=== PATIENT | male | born 1930 | race Caucasian/White ===

== ENCOUNTER → 2017-04-05 | Outpatient (CLI) | payer OTHER ==
[2017-04-05 09:50] LABS: BASO % 0.1 %; BASO ABS # 0.01 K/uL (0-0.2); EOS % 0.1 %; EOS ABS # 0.02 K/uL (0-0.5); HEMATOCRIT 43.3 % (42-52); HEMOGLOBIN 14.5 g/dL (14.0-18.0); IG# 0.06 K/uL (0.00-0.02); LYMPH % 10.2 %; LYMPH ABS # 1.62 K/uL (1.2-3.4); MEAN CELL VOLUME 94.1 fL (80-100); MEAN CORPUSCULAR HEMOGLOBIN 31.5 pg (25-34); MEAN CORPUSCULAR HGB CONC 33.5 g/dl (32-36); MEAN PLATELET VOLUME 11.3 fL (7.4-10.4); MONO % 6.4 %; MONO ABS # 1.02 K/uL (0.11-0.59); NEUT % 82.8 %; PLATELET COUNT 129 K/uL (130-400); RED CELL DISTRIBUTION WIDTH CV 14.2 % (11.5-14.5); RED CELL DISTRIBUTION WIDTH SD 48.4 fL (36.4-46.3); WHITE BLOOD COUNT 15.83 K/uL (4.8-10.8)
[2017-04-05 09:59] LABS: ALBUMIN 3.2 gm/dl (3.4-5.0); ALT/SGPT 21 U/L (12-78); BLOOD UREA NITROGEN 35 mg/dl (7-18); CALCIUM 10.8 mg/dl (8.5-10.1); CARBON DIOXIDE 26 mmol/L (21-32); CREATININE 1.08 mg/dl (0.60-1.40); GLUCOSE 108 mg/dl (70-99); SODIUM 137 mmol/L (136-145)
[2017-04-05 10:10] LABS: ALKALINE PHOSPHATASE 59 U/L (45-117); AST/SGOT 14 U/L (15-37); TOTAL PROTEIN 6.6 gm/dl (6.4-8.2)
== END ==
LOC: C.LABUPHEI 09:28
PROVIDERS: ATTEND Nurse Practitioner Family
DX: I10 Essential (primary) hypertension (principal)

== ENCOUNTER → 2017-04-14 | Outpatient (CLI) | payer OTHER ==
[2017-04-14 09:58] LABS: BASO % 0.5 %; BASO ABS # 0.03 K/uL (0-0.2); EOS % 5.1 %; EOS ABS # 0.32 K/uL (0-0.5); HEMATOCRIT 40.7 % (42-52); HEMOGLOBIN 13.5 g/dL (14.0-18.0); IG# 0.01 K/uL (0.00-0.02); LYMPH ABS # 1.26 K/uL (1.2-3.4); MEAN CELL VOLUME 94.4 fL (80-100); MEAN CORPUSCULAR HEMOGLOBIN 31.3 pg (25-34); MEAN CORPUSCULAR HGB CONC 33.2 g/dl (32-36); MEAN PLATELET VOLUME 10.6 fL (7.4-10.4); MONO % 12.4 %; MONO ABS # 0.78 K/uL (0.11-0.59); NEUT % 61.8 %; NEUT ABS # 3.89 K/uL (1.4-6.5); PLATELET COUNT 102 K/uL (130-400); RED CELL DISTRIBUTION WIDTH CV 13.7 % (11.5-14.5); RED CELL DISTRIBUTION WIDTH SD 47.7 fL (36.4-46.3); WHITE BLOOD COUNT 6.29 K/uL (4.8-10.8)
[2017-04-14 10:10] LABS: BLOOD UREA NITROGEN 26 mg/dl (7-18); CARBON DIOXIDE 26 mmol/L (21-32); CREATININE 1.06 mg/dl (0.60-1.40); GLUCOSE 99 mg/dl (70-99); POTASSIUM 4.4 mmol/L (3.5-5.1); SODIUM 139 mmol/L (136-145)
== END ==
LOC: C.LABUPHEI 08:33
PROVIDERS: ATTEND Nurse Practitioner Family
DX: I10 Essential (primary) hypertension (principal); S06.5X9A Traumatic subdural hemorrhage with loss of consciousness of unspecified duration, initial encounter; X58.XXXA Exposure to other specified factors, initial encounter

== ENCOUNTER → 2017-04-28 | Outpatient (CLI) | payer OTHER ==
[2017-04-28 08:36] LABS: BASO % 0.1 %; BASO ABS # 0.01 K/uL (0-0.2); HEMATOCRIT 37.9 % (42-52); HEMOGLOBIN 12.8 g/dL (14.0-18.0); IG# 0.04 K/uL (0.00-0.02); LYMPH % 6.5 %; LYMPH ABS # 0.87 K/uL (1.2-3.4); MEAN CELL VOLUME 92.2 fL (80-100); MEAN CORPUSCULAR HEMOGLOBIN 31.1 pg (25-34); MEAN CORPUSCULAR HGB CONC 33.8 g/dl (32-36); MEAN PLATELET VOLUME 10.4 fL (7.4-10.4); MONO % 8.7 %; MONO ABS # 1.16 K/uL (0.11-0.59); NEUT % 84.4 %; PLATELET COUNT 178 K/uL (130-400); RED CELL DISTRIBUTION WIDTH SD 43.6 fL (36.4-46.3); WHITE BLOOD COUNT 13.38 K/uL (4.8-10.8)
[2017-04-28 08:41] LABS: BLOOD UREA NITROGEN 42 mg/dl (7-18); CALCIUM 11.2 mg/dl (8.5-10.1); CARBON DIOXIDE 24 mmol/L (21-32); CREATININE 1.73 mg/dl (0.60-1.40); GLUCOSE 117 mg/dl (70-99); POTASSIUM 3.8 mmol/L (3.5-5.1); SODIUM 137 mmol/L (136-145)
== END ==
LOC: C.LABUPHEI 08:13
PROVIDERS: ATTEND Nurse Practitioner Family
DX: I10 Essential (primary) hypertension (principal)

== ENCOUNTER → 2017-04-29 | Outpatient (CLI) | payer OTHER ==
[2017-04-29 08:27] LABS: BASO % 0.2 %; BASO ABS # 0.02 K/uL (0-0.2); EOS % 0.6 %; EOS ABS # 0.05 K/uL (0-0.5); HEMATOCRIT 37.3 % (42-52); HEMOGLOBIN 12.3 g/dL (14.0-18.0); IG# 0.02 K/uL (0.00-0.02); LYMPH % 11.8 %; LYMPH ABS # 1.02 K/uL (1.2-3.4); MEAN CELL VOLUME 91.9 fL (80-100); MEAN CORPUSCULAR HEMOGLOBIN 30.3 pg (25-34); MEAN PLATELET VOLUME 10.7 fL (7.4-10.4); MONO % 10.9 %; MONO ABS # 0.94 K/uL (0.11-0.59); NEUT % 76.3 %; NEUT ABS # 6.56 K/uL (1.4-6.5); PLATELET COUNT 186 K/uL (130-400); RED CELL DISTRIBUTION WIDTH CV 13.1 % (11.5-14.5); RED CELL DISTRIBUTION WIDTH SD 44.3 fL (36.4-46.3); WHITE BLOOD COUNT 8.61 K/uL (4.8-10.8)
[2017-04-29 08:39] LABS: BLOOD UREA NITROGEN 46 mg/dl (7-18); CARBON DIOXIDE 27 mmol/L (21-32); CREATININE 1.63 mg/dl (0.60-1.40); GLUCOSE 120 mg/dl (70-99); POTASSIUM 3.6 mmol/L (3.5-5.1); SODIUM 139 mmol/L (136-145)
== END | disposition home or self-care (01) ==
LOC: C.LABUPHEI 07:47
PROVIDERS: ATTEND Nurse Practitioner Family
DX: J18.9 Pneumonia, unspecified organism (principal)

== ENCOUNTER → 2017-05-02 | Outpatient (CLI) | payer OTHER ==
[2017-05-02 08:54] LABS: BLOOD UREA NITROGEN 34 mg/dl (7-18); CALCIUM 10.6 mg/dl (8.5-10.1); CARBON DIOXIDE 27 mmol/L (21-32); CREATININE 1.31 mg/dl (0.60-1.40); GLUCOSE 92 mg/dl (70-99); POTASSIUM 4.3 mmol/L (3.5-5.1); SODIUM 142 mmol/L (136-145)
== END | disposition home or self-care (01) ==
LOC: C.LABUPHEI 08:25
PROVIDERS: ATTEND Nurse Practitioner Family
DX: N18.9 Chronic kidney disease, unspecified (principal)

== ENCOUNTER → 2017-05-05 | Outpatient (CLI) | payer OTHER ==
[2017-05-05 10:04] LABS: BLOOD UREA NITROGEN 35 mg/dl (7-18); CALCIUM 10.8 mg/dl (8.5-10.1); CARBON DIOXIDE 25 mmol/L (21-32); CREATININE 1.09 mg/dl (0.60-1.40); GLUCOSE 103 mg/dl (70-99); POTASSIUM 3.9 mmol/L (3.5-5.1); SODIUM 141 mmol/L (136-145)
== END ==
LOC: C.LABUPHEI 09:15
PROVIDERS: ATTEND Nurse Practitioner Family
DX: N18.9 Chronic kidney disease, unspecified (principal)

== ENCOUNTER → 2017-05-13 | Outpatient (CLI) | payer OTHER ==
[2017-05-13 09:20] LABS: BLOOD UREA NITROGEN 37 mg/dl (7-18); CALCIUM 10.5 mg/dl (8.5-10.1); CARBON DIOXIDE 26 mmol/L (21-32); CREATININE 1.05 mg/dl (0.60-1.40); GLUCOSE 99 mg/dl (70-99); SODIUM 142 mmol/L (136-145)
== END ==
LOC: C.LABUPHEI 07:50
PROVIDERS: ATTEND Nurse Practitioner Family
DX: N18.9 Chronic kidney disease, unspecified (principal)

== ENCOUNTER → 2017-05-25 | Outpatient (CLI) | payer OTHER ==
[2017-05-25 08:16] LABS: BASO % 0.3 %; BASO ABS # 0.02 K/uL (0-0.2); EOS % 5.6 %; EOS ABS # 0.42 K/uL (0-0.5); HEMATOCRIT 37.7 % (42-52); HEMOGLOBIN 12.7 g/dL (14.0-18.0); IG# 0.01 K/uL (0.00-0.02); LYMPH % 23.1 %; LYMPH ABS # 1.72 K/uL (1.2-3.4); MEAN CELL VOLUME 91.5 fL (80-100); MEAN CORPUSCULAR HEMOGLOBIN 30.8 pg (25-34); MEAN CORPUSCULAR HGB CONC 33.7 g/dl (32-36); MEAN PLATELET VOLUME 11.4 fL (7.4-10.4); MONO ABS # 0.82 K/uL (0.11-0.59); NEUT % 59.9 %; NEUT ABS # 4.47 K/uL (1.4-6.5); PLATELET COUNT 120 K/uL (130-400); RED CELL DISTRIBUTION WIDTH CV 13.7 % (11.5-14.5); RED CELL DISTRIBUTION WIDTH SD 45.7 fL (36.4-46.3); WHITE BLOOD COUNT 7.46 K/uL (4.8-10.8)
[2017-05-25 08:25] LABS: BLOOD UREA NITROGEN 19 mg/dl (7-18); CALCIUM 10.5 mg/dl (8.5-10.1); CARBON DIOXIDE 25 mmol/L (21-32); CREATININE 1.03 mg/dl (0.60-1.40); GLUCOSE 97 mg/dl (70-99); POTASSIUM 4.3 mmol/L (3.5-5.1); SODIUM 140 mmol/L (136-145)
--- NOTE | 2017-06-02 07:47 | CODING QUERY NO DIAGNOSIS ---
TREATMENT RENDERED WITHOUT A DIAGNOSIS Sue RN OR LPN, To promote full compliance with coding requirements relating to patient care, physician participation is requested in all cases of communications strategist uncertainty. Please assist us with providing a diagnosis/symptom for the test(s) below: A diagnosis/symptom was not documented on your Order. A valid diagnosis/symptom is required to bill all insurances. Please remember that we are unable to code a diagnosis of rule out, probable, possible, questionable, or suspected. Tests that require a diagnosis: * TSH DIAGNOSIS: DATE OF SERVICE: 05/25/17 Provider Signature: Date: Thank you Jonnathan Marx [facility] Information Management Once completed, please kindly fax back to [phone] For questions please call [phone]
== END | disposition home or self-care (01) ==
LOC: C.LABUPHEI 07:56
PROVIDERS: ATTEND Nurse Practitioner Family
DX: N18.9 Chronic kidney disease, unspecified (principal); I62.01 Nontraumatic acute subdural hemorrhage; N36.0 Urethral fistula; R41.82 Altered mental status, unspecified; Z51.81 Encounter for therapeutic drug level monitoring; Z79.899 Other long term (current) drug therapy

== ENCOUNTER → 2017-05-26 | Outpatient (CLI) | payer OTHER | END | disposition home or self-care (01) | LOC: C.LABUPHEI 09:38 | PROVIDERS: ATTEND Nurse Practitioner Family | DX: R41.82 Altered mental status, unspecified (principal) ==

== ENCOUNTER → 2017-06-09 | Outpatient (CLI) | payer OTHER ==
--- NOTE | 2017-06-09 15:09 | EEG Procedure Note ---
EEG Procedure Note Date of Service June 09, 2017. Start / End Times Start Time: 1:42 PM End Time: 2:02 PM Referring Physician Nicolas Velez MD History This is a 86-year-old male with a history of vascular dementia, ataxia, and bilateral subdural hematomas. EEG for further evaluation of epileptiform discharges and medication management. Description This is a 21 electrode EEG with a single channel dedicated to limited EKG. The electrodes were placed in accordance with the International 10-20 system. At the start of the recording the patient was in an awake state. Background was well organized and composed of symmetric mixed alpha and beta frequencies. There was a symmetric well-formed moderate amplitude 8-9Hz posterior dominant rhythm that was reactive to eye opening and closure. Hyperventilation and Intermittent photic stimulation were not done due to patient not following commands. Mild drowsiness may have been indicated by mild slowing of the background rhythm. There was no sleep transients. Interpretation This is a normal awake and minimally drowsy routine EEG. There was no focal slowing, electrographic seizures or epileptiform discharges. Clinical Correlation A normal EEG does not rule out epilepsy if there is a strong clinical suspicion.
== END | disposition home or self-care (01) ==
LOC: C.NEUR 13:28
PROVIDERS: ATTEND Psychiatry & Neurology Neurology
DX: R27.0 Ataxia, unspecified (principal); F01.50 Vascular dementia, unspecified severity, without behavioral disturbance, psychotic disturbance, mood disturbance, and anxiety; S06.5X9A Traumatic subdural hemorrhage with loss of consciousness of unspecified duration, initial encounter; X58.XXXA Exposure to other specified factors, initial encounter

== ENCOUNTER → 2017-06-13 | Outpatient (CLI) | payer OTHER | LOC: C.LABUPHEI 09:04 | PROVIDERS: ATTEND Nurse Practitioner Family | DX: D64.9 Anemia, unspecified (principal) ==

== ENCOUNTER 2018-10-25 14:20 | Inpatient (IN) ==
[2018-10-25] MEDS ORDERED: SODIUM CHLORIDE 0.9% 1000ML 1,000 ML IV SCH (14:30)
--- NOTE | 2018-10-25 14:51 | XRay Report ---
XR chest 1V portable CLINICAL HISTORY: weakness dyspnea COMPARISON STUDY: Prominent pulmonary vasculature. This is slightly asymmetric and somewhat more pro minent on the left as compared to the right. Moderate cardiomegaly. IMPRESSION: Developing congestive heart failure The above report was generated using voice recognition software. It may contain grammatical, syntax or spelling errors. Electronically signed by: Nicolas Padgett M.D. 10/25/2018 2:50 PM
[2018-10-25 14:59] LABS: Basophils # (auto) 0.01 K/uL (0-0.2); Basophils % (auto) 0.1 %; Eosinophils # (auto) 0.26 K/uL (0-0.5); Eosinophils % (auto) 1.9 %; Hemoglobin 13.4 g/dL (14.0-18.0); Immature Granulocytes # (auto) 0.04 K/uL (0.00-0.02); Immature Granulocytes % (auto) 0.3 %; Lymphocytes # (auto) 1.03 K/uL (1.2-3.4); Lymphocytes % (auto) 7.6 %; Mean Corpuscular Hemoglobin 31.3 pg (25-34); Mean Corpuscular Hgb Conc 34.4 g/dL (32-36); Mean Corpuscular Volume 91.1 fL (80-100); Mean Platelet Volume 10.9 fL (7.4-10.4); Monocytes # (auto) 1.41 K/uL (0.11-0.59); Monocytes % (auto) 10.4 %; Neutrophils # (auto) 10.85 K/uL (1.4-6.5); Neutrophils % (auto) 79.7 %; Platelet Count 110 K/uL (130-400); RDW Standard Deviation 43.3 fL (36.4-46.3); Red Blood Count 4.28 M/uL (4.7-6.1)
[2018-10-25 15:20] LABS: Appearance Urine Clear (Clear); Bacteria Urine Automated Negative (Negative); Bilirubin Urine Negative (Negative); Blood Urine Negative (Negative); Cast Urine Automated 0 /lpf (0-5); Color Urine Yellow; Glucose Urine UA Negative (Negative); Ketones Urine Negative (Negative); Leukocyte Esterase Urine 1+ (Negative); Nitrite Urine Negative (Negative); Protein Urine Negative (Negative); RBC Urine Automated 0-4 /hpf (0-4); Specific Gravity Urine 1.021 (1.000-1.030); Urobilinogen Urine Negative (Negative)
[2018-10-25 15:33] LABS: Albumin Globulin Ratio 0.8 (0.9-2); Albumin Level 2.9 gm/dl (3.4-5.0); BUN Creatinine Ratio 19.9 (10-20); Bilirubin,Total 0.8 mg/dl (0.2-1); Calcium 8.9 mg/dl (8.5-10.1); Creatinine Clr Calc Pharmacy 12.5 ml/min; Est GFR (African American) 11.9; Est GFR (Non-African American) 10.2; Globulin 3.8 gm/dl (2.5-4.0); Magnesium 2.3 mg/dl (1.8-2.4); Potassium 3.1 mmol/L (3.5-5.1); Thyroid Stimulating Hormone 4.57 uIu/ml (0.300-4.500); Total Protein 6.7 gm/dl (6.4-8.2); Troponin I 0.082 ng/ml (0-0.045)
[2018-10-25 15:46] LABS: T4 Free Thyroxine 1.05 ng/dl (0.8-1.6)
--- NOTE | 2018-10-25 17:22 | History & Physical Report ---
Date of Service October 25, 2018 Assessment & Plan (1) KELSEY (acute kidney injury): (2) CKD (chronic kidney disease), stage III: Pt is 88 y/o M with PMH h/o subdural hematoma, HTN, dyslipidemia, pulmonary hypertension, BPH, h/o urinary calculi, CKD III, chronic anemia, GERD, depression, dementia, hypothyroidism, AAA presented from outpatient radiology department today for abnormal renal functions. In ER pt afebrile, P: 75, R: 16, BP: 129/71, 93-95% on RA. WBC: 13.6, H/H: (Hgb: 12.9 in 01/2018), Plt: 110, BUN: 95, Cr: 4.7, GFR: 10 (Cr: 1.1 in 01/2018) UA: 1+ leuk esterase, 5-10 WBC, 10-20 epithelial Probable secondary to obstruction from enlarged prostate -In ER Bonilla placed with 1500ml urine output -In ER given 1L NSS -Urine culture -Rocephin x 1 dose now, pending urine culture -Gentle IVF -Avoid nephrotoxic agents when possible -Monitor renal functions -Urology consult -If no improvement consult nephrology (3) Hydronephrosis: (4) Urinary retention: Pt unable to give history, [facility] staff report no noted fever/chills and state pt with chronic intermittent urinary frequency, urinary incontinence Pt follows with Dr Grayson CT ABD/PELVIS: 1. Bilateral hydroureteronephrosis. 2. Several nonobstructing renal cortical calcifications bilaterally with several simple bilateral renal peripelvic cysts. 3. Bladder distention potentially related to a component of bladder outlet obstruction. 4. This potentially is the etiology for the bilateral hydroureteronephrosis. 5 prostatic enlargement. -In ER Bonilla placed with 1500ml urine output -Continue flomax -Urology consult (5) Elevated troponin: Troponin: 0.08. Nonspecific ST changes. No reported CP Probable secondary from CKD -Trend troponin -Repeat EKG in am -If develops CP or up trending troponin consider echo (6) Hypokalemia: K: 3.1 -replace and monitor -hold home supplement and repeat electrolytes and renal functions in am (7) QT prolongation: Prolonged QTc on EKG -Repeat EKG in am -Hold Haldol (8) Chronic anemia: H/H: 13/39. Baseline Hgb: 12.9 -Monitor H&H (9) HTN (hypertension): BP on lower side -Hold lisinopril secondary to KELSEY -Monitor BP (10) Dyslipidemia: -Continue statin (11) Dementia: -Hold Haldol secondary to prolonged QTC -Continue trazodone with close monitoring of QTc -Continue Aricept -Monitor for delirium (12) Hypothyroidism: TSH: 4.5 -Not on home meds DVT Prophylaxis -Heparin SQ DNR/DNI as per POLST and discussion with pt's guardian - [facility] [place] Follows with Dr Yang at [facility] for routine care Pt was seen and care coordinated with Dr Bruce. See addendum History of Present Illness Chief Complaint: Abnormal labs Primary Care Provider: [facility] -Dr Yang Pt is 88 y/o M with PMH h/o subdural hematoma, HTN, dyslipidemia, pulmonary hypertension, BPH, h/o urinary calculi, CKD III, chronic anemia, GERD, depression, dementia, hypothyroidism, AAA presented to ER from outpatient radiology department today for abnormal renal functions. History obtained from [facility] staff, as pt unable to give history secondary to dementia. Staff report patient alert to person only at baseline and report today patient seems at baseline mental status. It is reported patient with intermittent trouble urinating, intermittent urinary incontinence, intermittent urinary frequency. He is followed by Dr. Grayson, urology. Staff reports the patient was scheduled to have cystoscopy next month and he was to have CT abdomen pelvis today prior to his scheduled cystoscopy. Staff denies any noted fever or chills with patient. Staff reports did UA in clinic on 10/19/2018 which looked benign. Staff report have not noticed any hematuria and pt urinates on his own, however unsure if pt empties bladder completely as they do not bladder scan pt there. Currently pt is alert to self only and denies any CP, SOB, BARDALES, abdominal pain, back pain. Patient guardian - Yvonne Juarez with [facility] [facility] [place]. . She was not available as after office hours, however I was able to speak to on- certified personal finance counselor at [facility] [employer] on [address]. Report that pt is DNR/DNI and state that ok if pt receives IVF or antibiotics as needed as long as pt has treatable and reversible condition. Allergies Allergy/AdvReac Type Severity Reaction Status Date / Time celecoxib [From Celebrex] Allergy Unknown Unknown Verified 10/25/18 15:19 latex Allergy Unknown Unknown Verified 10/25/18 15:19 rofecoxib Allergy Unknown Unknown Verified 10/25/18 15:19 Home Medications Home Medications Medication Instructions Recorded Confirmed Type atorvastatin 20 mg tablet 20 mg PO QPM 10/04/18 10/25/18 History donepezil 5 mg tablet 5 mg PO HS 10/04/18 10/25/18 History fluticasone furoate 27.5 See Rx Instructions .ROUTE 10/04/18 10/25/18 History mcg/actuation nasal .COMPLEX PRN spray,suspension haloperidol 0.5 mg tablet 0.5 mg PO HS 10/04/18 10/25/18 History lisinopril 5 mg tablet 5 mg PO DAILY 10/04/18 10/25/18 History magnesium hydroxide 400 mg/5 mL 30 ml PO DIRECTED PRN 10/04/18 10/25/18 History oral suspension acetaminophen 650 mg PO Q6H PRN MDD 3 GM APAP/10/25/18 10/25/18 History HOURS acetaminophen 650 mg RI Q6H PRN 10/25/18 10/25/18 History bisacodyl [Dulcolax (bisacodyl)] 10 mg RI DIRECTED PRN 10/25/18 10/25/18 History cetirizine [Zyrtec] 10 mg PO DAILY 10/25/18 10/25/18 History nut.tx,spec.frm,l-fr,iron-fos 1 ea PO QID 10/25/18 10/25/18 History [TwoCal HN] sod phos di, mono-K phos mono 1 tab PO TID 10/25/18 10/25/18 History [S-Fngu-Jxirsss] sodium phosphates [Fleet Enema] 118 ml RI DIRECTED PRN 10/25/18 10/25/18 History tamsulosin [Flomax] 0.4 mg PO QPM 10/25/18 10/25/18 History trazodone 25 mg PO DAILY 10/25/18 10/25/18 History Past Med/Surg History Medical History Depression (Chronic) AAA (abdominal aortic aneurysm) (Chronic) Dementia (Chronic) Hypothyroidism (Chronic) BPH (benign prostatic hyperplasia) (Chronic) Chronic anemia (Chronic) History of subdural hematoma (Chronic) GERD (gastroesophageal reflux disease) (Chronic) CKD (chronic kidney disease), stage III (Chronic) HTN (hypertension) (Chronic) Dyslipidemia (Chronic) Hyperlipidemia Hypertension Family History Mother Hypertension Social History Preferred Language: Arabic Watchguard Required: No Current Living Situation: Custodial Current Living Situation Comment: [facility] Feels Safe at Home: Yes Smoking Status: Unknown if ever smoked Hx Alcohol Use: No Hx Substance Use: No Review of Systems Review of Systems: Unobtainable due to cognitive status Physical Exam Physical Exam: General: elderly male in no acute distress, moderately developed, moderately nourished Head: normocephalic, atraumatic Eyes: PERRL, EOM's intact, conjunctiva non-injected, anicteric ENT: normal inspection external ears, nose, mucous membranes moist Neck: supple, trachea midline Lungs: clear, diminished, no respiratory distress, no wheezing/rhonchi/rales CV: RRR, no murmur, no pretibial edema Abd: normal BS, soft, non-tender, no apparent CVA tenderness to percussion Ext: no cyanosis, no calf tenderness Neuro: Alert, oriented to person only, cooperative Skin: warm, dry Results & Data Vital Signs (Past 12 Hours) Vital Signs Temp Pulse Resp BP Pulse Ox 10/25/18 17:00 68 12 100/47 L 98 10/25/18 16:31 69 11 L 99 10/25/18 16:30 68 13 121/50 L 97 10/25/18 16:00 70 12 95/51 L 96 10/25/18 15:30 75 14 94/50 L 97 10/25/18 15:09 84 16 95 10/25/18 15:08 79 24 131/78 95 10/25/18 15:00 85 22 95 10/25/18 14:45 93 10/25/18 14:37 86 17 94 10/25/18 14:31 86 17 131/66 95 10/25/18 14:21 37.3 C 75 16 129/71 93 Laboratory Results Short CBC 10/25/18 Range/Units 14:50 WBC 13.60 H (4.8-10.8) K/uL Hgb 13.4 L (14.0-18.0) g/dL Hct 39.0 L (42-52) % Plt Count 110 L (130-400) K/uL BMP 10/25/18 14:50 Sodium 141 Potassium 3.1 L Chloride 104 Carbon Dioxide 25 BUN 95 H Creatinine 4.78 H* Glucose 116 H Calcium 8.9 Cardiac Enzymes 10/25/18 Range/Units 14:50 Troponin I 0.082 H* (0-0.045) ng/ml Liver Function 10/25/18 Range/Units 14:50 Total Bilirubin 0.8 (0.2-1) mg/dl AST 24 (15-37) U/L ALT 31 (12-78) U/L Alkaline Phosphatase 70 (45-117) U/L Albumin 2.9 L (3.4-5.0) gm/dl Urine 10/25/18 Range/Units 15:00 Urine Color Yellow Urine Appearance Clear (Clear) Urine pH 5.0 (4.5-7.5) Ur Specific [place] 1.021 (1.000-1.030) Urine Protein Negative (Negative) Urine Glucose (UA) Negative (Negative) Diagnostic Findings CXR: IMPRESSION: Developing congestive heart failure CT ABD/PELVIS: IMPRESSION: 1. Bilateral hydroureteronephrosis. 2. Several nonobstructing renal cortical calcifications bilaterally with several simple bilateral renal peripelvic cysts. 3. Bladder distention potentially related to a component of bladder outlet obstruction. 4. This potentially is the etiology for the bilateral hydroureteronephrosis. 5 prostatic enlargement. 6. 5 cm infrarenal abdominal aortic aneurysm. ECG Rate (beats per minute): 82 Rhythm: sinus rhythm Findings: + nonspecific-ST abn Code Status & VTE Plan VTE Prophylaxis Plan VTE Prophylaxis will be ordered: Yes Supervising Physician Co-Signing Physician Notes Patient is an 88-year-old male with history of subdural hematoma, advanced dementia and other medical problems was evaluated for abnormal labs, urinary retention, KELSEY, obstructive uropathy. History is limited secondary to patient's dementia. Please review HPI for complete details. Patient denies any chest pain, shortness of breath, abdominal pain, nausea, vomiting. Patient was noted to have urinary retention and Bonilla catheter was placed while in ED. On exam patient is oriented to person only, no apparent distress, normocephalic atraumatic, lungs are clear to auscultation, decreased breath sounds, S1-S2, no murmur, abdomen soft nontender, grossly no focal neurological deficits, no pedal edema. Patient is admitted for management of obstructive uropathy, bilateral hydronephrosis, KELSEY, hypokalemia, troponin elevation likely secondary to acute renal failure, QTC prolongation. Abnormal UA--less likely UTI. Obstructive uropathy likely secondary to enlarged prostate. Nonobstructive renal calculi also noted on imaging. Continue Bonilla catheter, gentle IV fluids, avoid nephrotoxic agents. Urology consulted. Continue Flomax. Replace electrolytes as needed. Trend troponins. Monitor EKG for QTC prolongation. Discussed with patient's guardian prior to any aggressive management. Also noted infrarenal abdominal aortic aneurysm--monitor for now. Repeat renal ultrasound in a.m. to monitor for obstruction. Consider nephrology consult if renal function not improved with conservative management. Noted chronic thrombocytopenia. No signs of any acute bleeding. Monitor CBC. I personally reviewed the record. Patient is interviewed and examined at bedside. Patient's care is coordinated with Funmilayo Peralta PA-C. Please refer to the documentation above for details of patient's presentation and for discussion of other issues.
[2018-10-25] MEDS ORDERED: ACETAMINOPHEN 325 MG TAB PO PRN (17:45)
[2018-10-25] MEDS ORDERED: POTASSIUM CHLORIDE 20 MEQ TABCR PO STA (17:45)
[2018-10-25] MEDS ORDERED: FLUTICASONE PROPIONATE NA SPR 16 GM BTL PRN (18:00)
[2018-10-25] MEDS ORDERED: cefTRIAXone SODIUM 1,000 MG in DEXTROSE 5% 50 ML IV ONE (18:00)
[2018-10-25] MEDS ORDERED: cefTRIAXone SODIUM 2,000 MG in DEXTROSE 5% 50 ML IV ONE (18:00)
[2018-10-25] MEDS: SODIUM CHLORIDE 0.9% 1000ML 1,000 ML IV SCH (18:26)
--- NOTE | 2018-10-25 18:34 | Emergency Department Note ---
Entered by Tab Bernabe acting as a scribe for History of Present Illness General Chief complaint: Abnormal Labs/Diagnostic Testing Stated complaint: ABNORMAL LABS Source: patient History of Present Illness Provider complaint: Abnormal labs Onset (ago): hour(s) (Just prior to arrival) Location: abdomen Pain Consistency: + constant and + other (Episodic) Maximum Pain Intensity: 5 Current Pain Intensity: 5 Relieved By: + none Exacerbated By: + none Associated symptoms: + other (Abdominal pain ); no chest pain, no fever/chills, no nausea/vomiting and no shortness of breath The patient is an 88 year old male w/ PMHx HTN and HLD who presents to the ED after being sent over by the appliance service technician after having an elevated POC creatinine the was noticed just prior to arrival. The patient was originally sent to have an outpatient CT done of his abdomen and pelvis due to abdominal pain and hematuria that he has been experiencing for the past couple of days. The patient describes her pain as constant and rates it a 5/10. The patient notes nothing makes his symptoms better or worse. The patient's POC creatinine was 4.8 which is much greater than his baseline. The patient denies any cough, rhinorrhea, nausea, vomiting, or diarrhea. Home Medications Home Medications Medication Instructions Recorded Confirmed Type atorvastatin 20 mg tablet 20 mg PO QPM 10/04/18 10/25/18 History donepezil 5 mg tablet 5 mg PO HS 10/04/18 10/25/18 History fluticasone furoate 27.5 See Rx Instructions .ROUTE 10/04/18 10/25/18 History mcg/actuation nasal .COMPLEX PRN spray,suspension haloperidol 0.5 mg tablet 0.5 mg PO HS 10/04/18 10/25/18 History lisinopril 5 mg tablet 5 mg PO DAILY 10/04/18 10/25/18 History magnesium hydroxide 400 mg/5 mL 30 ml PO DIRECTED PRN 10/04/18 10/25/18 History oral suspension acetaminophen 650 mg PO Q6H PRN MDD 3 GM APAP/24 10/25/18 10/25/18 History HOURS acetaminophen 650 mg OK Q6H PRN 10/25/18 10/25/18 History bisacodyl [Dulcolax (bisacodyl)] 10 mg OK DIRECTED PRN 10/25/18 10/25/18 History cetirizine [Zyrtec] 10 mg PO DAILY 10/25/18 10/25/18 History nut.tx,spec.frm,l-fr,iron-fos 1 ea PO QID 10/25/18 10/25/18 History [TwoCal HN] sod phos di, mono-K phos mono 1 tab PO TID 10/25/18 10/25/18 History [W-Nxgn-Zcgenhq] sodium phosphates [Fleet Enema] 118 ml OK DIRECTED PRN 10/25/18 10/25/18 History tamsulosin [Flomax] 0.4 mg PO QPM 10/25/18 10/25/18 History trazodone 25 mg PO DAILY 10/25/18 10/25/18 History Allergies Allergy/AdvReac Type Severity Reaction Status Date / Time celecoxib [From Celebrex] Allergy Unknown Unknown Verified 10/25/18 15:19 latex Allergy Unknown Unknown Verified 10/25/18 15:19 rofecoxib Allergy Unknown Unknown Verified 10/25/18 15:19 Past Med/Surg History Medical History Depression (Chronic) AAA (abdominal aortic aneurysm) (Chronic) Dementia (Chronic) Hypothyroidism (Chronic) BPH (benign prostatic hyperplasia) (Chronic) Chronic anemia (Chronic) History of subdural hematoma (Chronic) GERD (gastroesophageal reflux disease) (Chronic) CKD (chronic kidney disease), stage III (Chronic) HTN (hypertension) (Chronic) Dyslipidemia (Chronic) Hyperlipidemia Hypertension Family History Mother Hypertension Social History Preferred Language: [place] 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 and A total of 10 systems reviewed and were otherwise negative Physical Exam Vital Signs Vital Signs - 24 hr 10/25/18 14:21 10/25/18 14:31 10/25/18 14:37 Temperature 37.3 C Temperature Source Oral Sepsis Recent Fever Within 48 Hours No Sepsis Action Taken by Nursing No Action Required Pulse Rate 75 86 86 Pulse Rate from SpO2 Sensor 86 83 Respiratory Rate 16 17 17 Blood Pressure 129/71 131/66 Blood Pressure Mean 90 87 Pulse Oximetry 93 95 94 Oxygen Delivery Method Room Air Room Air Room Air 10/25/18 14:45 10/25/18 15:00 10/25/18 15:08 Temperature Temperature Source Sepsis Recent Fever Within 48 Hours Sepsis Action Taken by Nursing Pulse Rate 85 79 Pulse Rate from SpO2 Sensor 84 73 Respiratory Rate 22 24 Blood Pressure 131/78 Blood Pressure Mean 95 Pulse Oximetry 93 95 95 Oxygen Delivery Method Room Air Room Air Room Air 10/25/18 15:09 10/25/18 15:30 10/25/18 16:00 Temperature Temperature Source Sepsis Recent Fever Within 48 Hours Sepsis Action Taken by Nursing Pulse Rate 84 75 70 Pulse Rate from SpO2 Sensor 86 66 69 Respiratory Rate 16 14 12 Blood Pressure 94/50 L 95/51 L Blood Pressure Mean 64 65 Pulse Oximetry 95 97 96 Oxygen Delivery Method Room Air Room Air Room Air 10/25/18 16:30 10/25/18 16:31 Temperature Temperature Source Sepsis Recent Fever Within 48 Hours Sepsis Action Taken by Nursing Pulse Rate 68 69 Pulse Rate from SpO2 Sensor 69 69 Respiratory Rate 13 11 L Blood Pressure 121/50 L Blood Pressure Mean 73 Pulse Oximetry 97 99 Oxygen Delivery Method Room Air Room Air GENERAL: Sitting up in bed, alert, chronically ill appearing, disheveled EYE EXAM: normal conjunctiva. OROPHARYNX: no exudate, no erythema, lips, buccal mucosa, and tongue normal and mucous membranes are moist NECK: supple, no nuchal rigidity, no adenopathy, non-tender LUNGS: Clear to auscultation. Normal chest wall mechanics HEART: no murmurs, S1 normal and S2 normal ABDOMEN: abdomen soft, non-tender, normo-active bowel, sounds, no masses, no rebound or guarding. SKIN: no rashes and no bruising UPPER EXTREMITIES: upper extremities are grossly normal. LOWER EXTREMITIES: No pitting edema. NEURO EXAM: Oriented to person, place but not year, cranial nerves II-XII grossly intact, no focal deficits. Course ED COURSE: Vital signs were reviewed and showed hypotension. The patients medical record was reviewed The above diagnostic studies were performed and reviewed. ED treatments and interventions as stated above. 1427: The patient was evaluated in room C12B. A complete history and physical examination was performed. 1508: The patient had a Bonilla cath placed and produced 1400mL of urine. 1532: I spoke to Funmilayo Peralta Annabel PAC under Dr. Teo Taveras about the patient's case. They are going to accept the pa mary for further evaluation. 1540: Upon reevaluation, the patient is resting in bed. I discussed my findings with the patient and he understands and agrees with the treatment plan. Based on the patients age, coexisting illnesses, exam and lab findings the decision to treat as an inpatient was made. The patient remained stable while under my care. The patient will be evaluated for further management. Consultations Consultation #1: I spoke to Funmilayo Peralta Annabel PAC under Dr. Teo Taveras about the patient's case. They are going to accept the patient for further evaluation. Time: 15:32 Administered Medications Sodium Chloride (Nss 1000ml) 1,000 mls @ 80 mls/hr IV .[id number] TRUMAN Stop: 10/26/18 18:44 Last Admin: 10/25/18 18:26 Dose: 80 mls/hr Documented by: [id number] Ceftriaxone Sodium 2,000 mg/ (Dextrose) 70 mls @ 100 mls/hr IV ONE ONE; Protocol Stop: 10/25/18 18:41 Last Admin: 10/25/18 18:27 Dose: 100 mls/hr Documented by: [id number] Discontinued Medications Sodium Chloride (Nss 1000ml) 1,000 mls @ 999 mls/hr IV .[id number] TRUMAN Stop: 10/25/18 15:30 Last Infusion: 10/25/18 16:16 Dose: 0 mls/hr Documented by: [id number] Admin: 10/25/18 15:15 Dose: 999 mls/hr Documented by: [id number] Potassium Chloride (Klor-Con M20) 40 meq PO NOW STA Stop: 10/25/18 17:46 Last Admin: 10/25/18 18:26 Dose: 40 meq Documented by: [id number] Medical Decision Making Differential Diagnosis Differential diagnoses includes but is not limited to gastritis, peptic ulcer disease, GERD, gallbladder disease, pancreatitis, small bowel obstruction, acute coronary syndrome, pericarditis, ischemic bowel, irritable bowel disease, irritable bowel syndrome, appendicitis, diverticulitis, malignancy, hernia, urinary tract infection, torsion, perforation, trauma, infectious. Medical Records Attestation: I reviewed the patient's medical records. Home Medications Current Medication List: was personally reviewed by me Laboratory Data Attestation: I reviewed the patient's lab results. Result diagrams: 10/25/18 14:50 10/25/18 14:50 Lab Results 10/25/18 10/25/18 10/25/18 Range/Units 14:50 14:50 15:00 WBC 13.60 H (4.8-10.8) K/uL RBC 4.28 L (4.7-6.1) M/uL Hgb 13.4 L (14.0-18.0) g/dL Hct 39.0 L (42-52) % MCV 91.1 (80-100) fL MCH 31.3 (25-34) pg MCHC 34.4 (32-36) g/dL RDW Std Deviation 43.3 (36.4-46.3) fL RDW Coeff of Barbara 13.0 (11.5-14.5) % Plt Count 110 L (130-400) K/uL MPV 10.9 H (7.4-10.4) fL Immature Gran % (Auto) 0.3 % Neut % (Auto) 79.7 % Lymph % (Auto) 7.6 % [place] % (Auto) 10.4 % Eos % (Auto) 1.9 % Baso % (Auto) 0.1 % Immature Gran # (Auto) 0.04 H (0.00-0.02) K/uL Neut # (Auto) 10.85 H (1.4-6.5) K/uL Lymph # (Auto) 1.03 L (1.2-3.4) K/uL [place] # (Auto) 1.41 H (0.11-0.59) K/uL Eos # (Auto) 0.26 (0-0.5) K/uL Baso # (Auto) 0.01 (0-0.2) K/uL Sodium 141 (136-145) mmol/L Potassium 3.1 L (3.5-5.1) mmol/L Chloride 104 (98-107) mmol/L Carbon Dioxide 25 (21-32) mmol/L Anion Gap 12.0 H (3-11) BUN 95 H (7-18) mg/dl Creatinine 4.78 H* (0.6-1.4) mg/dl Est Cr Clr Drug Dosing 12.5 ml/min Est GFR ( Amer) 11.9 Est GFR (Non-Af Amer) 10.2 BUN/Creatinine Ratio 19.9 (10-20) Glucose 116 H (70-99) mg/dl Calcium 8.9 (8.5-10.1) mg/dl Magnesium 2.3 (1.8-2.4) mg/dl Total Bilirubin 0.8 (0.2-1) mg/dl AST 24 (15-37) U/L ALT 31 (12-78) U/L Alkaline Phosphatase 70 (45-117) U/L Troponin I 0.082 H* (0-0.045) ng/ml Total Protein 6.7 (6.4-8.2) gm/dl Albumin 2.9 L (3.4-5.0) gm/dl Globulin 3.8 (2.5-4.0) gm/dl Albumin/Globulin Ratio 0.8 L (0.9-2) TSH 4.570 H (0.300-4.500) uIu/ml Free T4 1.05 (0.8-1.6) ng/dl Specimen Hemolysis Urine Color Yellow Urine Appearance Clear (Clear) Urine pH 5.0 (4.5-7.5) Ur Specific [place] 1.021 (1.000-1.030) Urine Protein Negative (Negative) Urine Glucose (UA) Negative (Negative) Urine Ketones Negative (Negative) Urine Blood Negative (Negative) Urine Nitrite Negative (Negative) Urine Bilirubin Negative (Negative) Urine Urobilinogen Negative (Negative) Ur Leukocyte Esterase 1+ H (Negative) Urine WBC (Auto) 5-10 H (0-5) /hpf Urine RBC (Auto) 0-4 (0-4) /hpf U Hyaline Cast (Auto) 0 (0-5) /lpf U Epithel Cells (Auto) 10-20 H (0-5) /lpf Urine Bacteria (Auto) Negative (Negative) Imaging Data Radiologist's Impression: Radiology results as stated below per my review and the radiologist's interpretation: XR chest 1V portable CLINICAL HISTORY: weakness dyspnea COMPARISON STUDY: Prominent pulmonary vasculature. This is slightly asymmetric and somewhat more prominent on the left as compared to the right. Moderate cardi omegaly. IMPRESSION: Developing congestive heart failure The above report was generated using voice recognition software. It may contain grammatical, syntax or spelling errors. Electronically signed by: Nicolas Padgett M.D. 10/25/2018 2:50 PM ECG Data Attestation: I personally reviewed and interpreted this ECG as follows: Indication: abdominal pain Rate (beats per minute): 82 Rhythm: sinus rhythm Findings: + other (Normal axis) and + ST depression (Anterior and lateral ) Blood Pressure Blood Pressure Findings: Elevated blood pressure Blood Pressure Disposition: Referred to patients primary care provider MDM Narrative Patient is a an 88-year-old male who presents the ER from CAT scan. Patient was scheduled to have a CT abdomen pelvis with and with IV contrast. Creatinine over there was found to be 4.8. He has some lower abdominal pain. IV was established blood work was obtained. Labs show a leukocytosis of 13,000. Hemoglobin was 13. Creatinine was 4.78 up from 1. Potassium was 3.1. Bonilla was placed secondary to the elevation in creatinine. Patient put out 2 L of fluid. He was given IV fluids. Troponin was positive at 0.082 which I favor secondary to the KELSEY. He denies any chest pain shortness of breath. UA with epithelial cells. CT abdomen pelvis confirms distended bladder with bilateral hydro-which I favor secondary to enlarged prostate and urinary retention. Patient was updated bedside and discussed with the hospitalist for admission. Impression & Plan Urinary retention, KELSEY (acute kidney injury) Discharge Plan Visit Data *Final* Discharge Date/Time: 10/25/18 17:12 Chief Complaint: Abnormal Labs/Diagnostic Testing Stated Complaint: ABNORMAL LABS ED Provider: Kodak Crisostomo Discharge Problem: Urinary retention, KELSEY (acute kidney injury) Patient Disposition: Admitted As Inpatient Discharge Instructions Interventions: ED Discharge Assessment Last Done: 10/25/18 17:12 The scribe's documentation has been prepared under my direction and personally reviewed by me in its entirety. I confirm that the note above accurately reflects all work, treatment, procedures, and medical decision making performed by me.
[2018-10-25] MEDS: TAMSULOSIN HCL 0.4 MG CAP PO SCH (21:26)
[2018-10-25] MEDS: DONEPEZIL HCL 5 MG TAB PO SCH (21:26)
[2018-10-25] MEDS: TRAZODONE HCL 50 MG TAB PO SCH (21:26)
[2018-10-25] MEDS: ATORVASTATIN 20 MG TAB PO SCH (21:26)
[2018-10-25 21:41] LABS: BUN Creatinine Ratio 25.8 (10-20); Calcium 8.5 mg/dl (8.5-10.1); Creatinine Clr Calc Pharmacy 19.6 ml/min; Est GFR (African American) 20.4; Est GFR (Non-African American) 17.6; Potassium 3.4 mmol/L (3.5-5.1)
[2018-10-25 22:23] LABS: Hematocrit (blood only) 35.6 % (42-52); Hemoglobin 12.3 g/dL (14.0-18.0)
[2018-10-26 02:29] LABS: Hematocrit (blood only) 35.3 % (42-52); Mean Corpuscular Volume 91.2 fL (80-100); RDW Standard Deviation 43.4 fL (36.4-46.3); Red Blood Count 3.87 M/uL (4.7-6.1); White Blood Count 9.88 K/uL (4.8-10.8)
[2018-10-26 02:46] LABS: Mean Platelet Volume 10.8 fL (7.4-10.4); Platelet Count 95 K/uL (130-400)
[2018-10-26 02:47] LABS: Basophils # (auto) 0.01 K/uL (0-0.2); Basophils % (auto) 0.1 %; Eosinophils # (auto) 0.46 K/uL (0-0.5); Eosinophils % (auto) 4.7 %; Immature Granulocytes # (auto) 0.03 K/uL (0.00-0.02); Immature Granulocytes % (auto) 0.3 %; Lymphocytes # (auto) 1.43 K/uL (1.2-3.4); Lymphocytes % (auto) 14.5 %; Monocytes # (auto) 1.18 K/uL (0.11-0.59); Monocytes % (auto) 11.9 %; Neutrophils # (auto) 6.77 K/uL (1.4-6.5); Neutrophils % (auto) 68.5 %; Platelet Estimate Decreased (Normal)
[2018-10-26 02:51] LABS: BUN Creatinine Ratio 29.6 (10-20); Calcium 8.2 mg/dl (8.5-10.1); Creatinine Clr Calc Pharmacy 25.1 ml/min; Est GFR (African American) 27.6; Est GFR (Non-African American) 23.8; Magnesium 2.2 mg/dl (1.8-2.4); Potassium 3.2 mmol/L (3.5-5.1)
[2018-10-26 03:03] LABS: Phosphorus 2.7 mg/dl (2.5-4.9); Troponin I 0.088 ng/ml (0-0.045)
[2018-10-26] MEDS ORDERED: POTASSIUM CHLORIDE 20 MEQ/15 ML UDC PO STA (03:52)
[2018-10-26] MEDS ORDERED: PNEUMOCOCCAL POLYSACCHARIDES 25 MCG/0.5 ML VIAL/SYR IM ONE (08:00)
[2018-10-26] MEDS ORDERED: PNEUMOCOCCAL ADMINISTRATION CHARGE ONE (08:00)
--- NOTE | 2018-10-26 08:37 | Hospitalist Progress Note ---
Date of Service October 26, 2018 Assessment & Plan (1) KELSEY (acute kidney injury): (2) CKD (chronic kidney disease), stage III: Pt is 88 y/o M with PMH h/o subdural hematoma, HTN, dyslipidemia, pulmonary hypertension, BPH, h/o urinary calculi, CKD III, chronic anemia, GERD, depression, dementia, hypothyroidism, AAA presented from outpatient radiology department today for abnormal renal functions. In ER pt afebrile, P: 75, R: 16, BP: 129/71, 93-95% on RA. WBC: 13.6, H/H: (Hgb: 12.9 in 01/2018), Plt: 110, BUN: 95, Cr: 4.7, GFR: 10 (Cr: 1.1 in 01/2018) UA: 1+ leuk esterase, 5-10 WBC, 10-20 epithelial Probable secondary to obstruction from enlarged prostate -In ER Bonilla placed with 1500ml urine output -In ER given 1L NSS -Urine culture -Rocephin x 1 dose now, pending urine culture -Gentle IVF -Avoid nephrotoxic agents when possible -Monitor renal functions -Urology consult -If no improvement consult nephrology -Cr improving (3) Hydronephrosis: (4) Urinary retention: Pt unable to give history, [facility] staff report no noted fever/chills and state pt with chronic intermittent urinary frequency, urinary incontinence Pt follows with Dr Grayson CT ABD/PELVIS: 1. Bilateral hydroureteronephrosis. 2. Several nonobstructing renal cortical calcifications bilaterally with several simple bilateral renal peripelvic cysts. 3. Bladder distention potentially related to a component of bladder outlet obstruction. 4. This potentially is the etiology for the bilateral hydroureteronephrosis. 5 prostatic enlargement. -In ER Bonilla placed with 1500ml urine output -Continue flomax -Urology consult (5) Elevated troponin: Troponin: 0.08. Nonspecific ST changes. No reported CP Probable secondary from CKD -Trend troponin -Repeat EKG in am -If develops CP or up trending troponin consider echo (6) Hypokalemia: K: 3.1 -replace and monitor -hold home supplement and repeat electrolytes and renal functions in am (7) QT prolongation: Prolonged QTc on EKG -Repeat EKG in am -Hold Haldol (8) Chronic anemia: H/H: . Baseline Hgb: 12.9 -Monitor H&H (9) HTN (hypertension): BP on lower side -Hold lisinopril secondary to KELSEY -Monitor BP (10) Dyslipidemia: -Continue statin (11) Dementia: -Hold Haldol secondary to prolonged QTC -Continue trazodone with close monitoring of QTc -Continue Aricept -Monitor for delirium (12) Hypothyroidism: TSH: 4.5 -Not on home meds DVT Prophylaxis -Heparin SQ DNR/DNI as per POLST and discussion with pt's guardian - [facility] Follows with Dr Yang at [facility] for routine care ROS-No Headache, No Visual Changes, No Nausea, No Vomiting, No Fever, No Chills, No Neck Pain or Stiffness, No Chest Pain, No Palpitations, No SOB, No PERRY, No Cough, No Sputum, No Wheezing, No Abdominal Pain, No Diarrhea, No Hematemesis, No Hemoptysis, No Unexpected Weight Loss, No Flank pain, No Melena, No Hematoch ezia, No Frequency, No Urgency, No Burning, No Hematuria, No Rashes, No Diaphoresis. Appetite is Normal Physical Exam Gen-AAO x 2, NAD, Afebrile, demented Head-NCAT, EOMI, PERRLA, Anicteric Sclera, No Posterior Pharyngeal Erythema Neck-Supple, No JVD, No Thyromegaly, No Masses, No LAD, No Bruits Lungs-Clear to Auscultation Bilaterally, No Rales, No Rhonchi, No Wheezing, No Crepitus Chest-No S4, +S1, +S2, No S3, No Murmurs, No Rubs, No Gallops, No Ectopy Abdomen-Soft, Bowel Sounds Present, Non Tender, Non Distended, No Hepatomegaly, No Splenomegaly, No Palpable Masses, No Rebound, No Rigidity, No Guarding Musculoskeletal-Full Range of Motion Bilaterally, No CVAT Extremities-No Cyanosis, No Clubbing, No Edema Nuero-Cranial Nerves II-XII grossly intact, Motor WNL, DTRs WNL, Strength WNL, Non Focal Psych-Normal Mood Results & Data Vital Signs (Past 12 Hours) Vital Signs Temp Pulse Pulse Resp BP BP Pulse Ox 10/26/18 07:27 36.9 C 56 L 16 94/57 L 96 10/26/18 05:25 36.7 C 98 H 20 162/74 H 96 10/26/18 00:39 74 10/25/18 23:13 37.0 C 64 18 117/77 97 Current Diagnoses Anemia, unspecified (10/25/18) Hypothyroidism, unspecified (10/25/18) Hyperlipidemia, unspecified (10/25/18) Hypokalemia (10/25/18) Unspecified dementia without behavioral disturbance (10/25/18) Essential (primary) hypertension (10/25/18) Unspecified hydronephrosis (10/25/18) Acute kidney failure, unspecified (10/25/18) Chronic kidney disease, stage 3 (moderate) (10/25/18) Retention of urine, unspecified (10/25/18) Abnormal levels of other serum enzymes (10/25/18) Abnormal electrocardiogram [ECG] [EKG] (10/25/18) Allergies celecoxib [From Celebrex] Allergy (Unknown, Verified 10/25/18 15:) Unknown latex Allergy (Unknown, Verified 10/25/18 15:19) Unknown rofecoxib Allergy (Unknown, Verified 10/25/18 15:19) Unknown Height/Weight/Isolation Height 5 ft 10 in Weight 92.6 kg Chemistry 10/25/18 10/25/18 10/26/18 14:50 21:06 02:01 Sodium 141 144 145 Potassium 3.1 L 3.4 L 3.2 L Chloride 104 111 H 112 H Carbon Dioxide 25 24 29 Anion Gap 12.0 H 9.0 4.0 BUN 95 H 79 H 70 H Creatinine 4.78 H* 3.05 H D 2.38 H D Glucose 116 H 108 H 86 Urinalysis 10/25/18 15:00 Urine Color Yellow Urine Appearance Clear Urine pH 5.0 Ur Specific [place] 1.021 Urine Protein Negative Urine Glucose (UA) Negative Urine Ketones Negative Urine Blood Negative Urine Nitrite Negative Urine Bilirubin Negative Microbiology 10/25/18 18:18 Blood Aerobic Blood Culture - Pending 10/25/18 18:18 Blood Anaerobic Blood Culture - Pending 10/25/18 18:19 Blood Aerobic Blood Culture - Pending 10/25/18 18:19 Blood Anaerobic Blood Culture - Pending 10/25/18 15:00 Urine,Straight Cath Urine Culture - Pending
[2018-10-26] MEDS: SODIUM CHLORIDE 0.9% 1000ML 1,000 ML IV SCH (09:16)
[2018-10-26] MEDS: CETIRIZINE HCL 10 MG TABLET PO SCH (09:16)
--- NOTE | 2018-10-26 09:20 | Ultrasound Report ---
EXAMINATION: RENAL ULTRASOUND CLINICAL HISTORY: Obstructive uropathy COMPARISON STUDY: Noncontrast CT scan dated 10/25/2018 FINDINGS: The right kidney measures 13.5 cm. The left kidney measures 13.6 cm. There is mild bilater al hydronephrosis there is a 2.4 cm upper pole right renal cyst. There is an 11 mm left renal calcul us. The patient had a Bonilla catheter. The bladder was decompressed. Neither ureteral jet was visualized. The prostate appears enlarged and lobulated.. IMPRESSION : 1. Bilateral hydronephrosis, less pronounced than on the prior CT scan 2. Left-sided nephrolithiasis 3. Prostatomegaly Electronically signed by: Luis Lopez M.D. 10/26/2018 9:19 AM
--- NOTE | 2018-10-26 15:22 | Urology Progress Note ---
Date of Service October 26, 2018 Assessment & Plan (1) BPH (benign prostatic hyperplasia): BPH, UR with resulting bilateral hydronephrosis, KELSEY improving with Bonilla placement. Maintain Bonilla. Patient has existing outpatient follow up with Dr. Grayson for cystoscopy in 1 week - we will reassess at that time. Please contact our service if we can assist further during hospitalization. (2) Urinary retention: (3) KELSEY (acute kidney injury): Subjective 88 YO male with dementia admitted to the hospital for abnormal labs and found to be in urinary retention. CT scan reveals bilateral hydronephrosis and bladder distention +nonobstructing nephrolithiasis. Bonilla was placed in the ER and his renal function is improving. Patient oriented x self and appears to be resting comfortably upon exam this afternoon. No pain. No chills. Bonilla not bothersome. Review of Systems Review of Systems: Unobtainable due to cognitive status (Oriented x self) Physical Exam Constitutional: no acute distress ENMT: Ears: no hearing impairment Neck: normal visual inspection Respiratory: normal respiratory effort Cardiovascular: Vessels: no JVD Gastrointestinal (Abdomen): Inspection/Auscultation: abdomen not distended Percussion/Palpation: abdomen soft; abdomen nontender Psychiatric: Orientation: alert, oriented to person and cooperative Genitourinary: bladder normal to palpation Bonilla in place, patent, draining clear yellow urine Results & Data Vital Signs (Past 12 Hours) Vital Signs Temp Pulse Pulse Resp BP Pulse Ox 10/26/18 12:10 36.8 C 62 18 115/64 96 10/26/18 08:41 63 10/26/18 07:27 36.9 C 56 L 16 94/57 L 96 10/26/18 05:25 36.7 C 98 H 20 162/74 H 96
[2018-10-26] MEDS: TRAZODONE HCL 50 MG TAB PO SCH (20:43)
[2018-10-26] MEDS: DONEPEZIL HCL 5 MG TAB PO SCH (20:44)
[2018-10-26] MEDS: ATORVASTATIN 20 MG TAB PO SCH (20:44)
[2018-10-26] MEDS: TAMSULOSIN HCL 0.4 MG CAP PO SCH (20:44)
[2018-10-27 07:03] LABS: Hematocrit (blood only) 34.9 % (42-52); Hemoglobin 11.7 g/dL (14.0-18.0); Mean Corpuscular Hemoglobin 31.1 pg (25-34); Mean Corpuscular Hgb Conc 33.5 g/dL (32-36); Mean Corpuscular Volume 92.8 fL (80-100); Mean Platelet Volume 10.5 fL (7.4-10.4); Platelet Count 108 K/uL (130-400); RDW Coefficient of Variation 12.9 % (11.5-14.5); RDW Standard Deviation 43.7 fL (36.4-46.3); Red Blood Count 3.76 M/uL (4.7-6.1); White Blood Count 9.29 K/uL (4.8-10.8)
[2018-10-27 07:41] LABS: BUN Creatinine Ratio 38.3 (10-20); Calcium 8.3 mg/dl (8.5-10.1); Creatinine Clr Calc Pharmacy 54.8 ml/min; Est GFR (African American) 69.3; Est GFR (Non-African American) 59.8; Potassium 3.6 mmol/L (3.5-5.1)
--- NOTE | 2018-10-27 07:53 | Discharge Summary ---
Date of Service October 27, 2018 Admission HPI Per Admitting Provider Pt is 88 y/o M with PMH h/o subdural hematoma, HTN, dyslipidemia, pulmonary hypertension, BPH, h/o urinary calculi, CKD III, chronic anemia, GERD, depression, dementia, hypothyroidism, AAA presented to ER from outpatient radiology department today for abnormal renal functions. History obtained from [facility] staff, as pt unable to give history secondary to dementia. Staff report patient alert to person only at baseline and report today patient seems at baseline mental status. It is reported patient with intermittent trouble urinating, intermittent urinary incontinence, intermittent urinary frequency. He is followed by Dr. Grayson, urology. Staff reports the patient was scheduled to have cystoscopy next month and he was to have CT abdomen pelvis today prior to his scheduled cystoscopy. Staff denies any noted fever or chills with patient. Staff reports did UA in clinic on 10/19/2018 which looked benign. Staff report have not noticed any hematuria and pt urinates on his own, however unsure if pt empties bladder completely as they do not bladder scan pt there. Currently pt is alert to self only and denies any CP, SOB, BARDALES, abdominal pain, back pain. Patient guardian - Yvonne Juarez with [facility]. . She was not available as after office hours, however I was able to speak to on- personnel security specialist at [facility] [employer]. Report that pt is DNR/DNI and state that ok if pt receives IVF or antibiotics as needed as long as pt has treatable and reversible condition. Admission Exam Per Admitting Provider General: elderly male in no acute distress, moderately developed, moderately nourished Head: normocephalic, atraumatic Eyes: PERRL, EOM's intact, conjunctiva non-injected, anicteric ENT: normal inspection external ears, nose, mucous membranes moist Neck: supple, trachea midline Lungs: clear, diminished, no respiratory distress, no wheezing/rhonchi/rales CV: RRR, no murmur, no pretibial edema Abd: normal BS, soft, non-tender, no apparent CVA tenderness to percussion Ext: no cyanosis, no calf tenderness Neuro: Alert, oriented to person only, cooperative Skin: warm, dry Principal Diagnosis (1) KELSEY (acute kidney injury): (2) CKD (chronic kidney disease), stage III: (3) Hydronephrosis: (4) Urinary retention: (5) Elevated troponin: (6) Hypokalemia: (7) QT prolongation: (8) Chronic anemia: (9) HTN (hypertension): (10) Dyslipidemia: (11) Dementia: (12) Hypothyroidism: Discharge Data Allergies Allergy/AdvReac Type Severity Reaction Status Date / Time celecoxib [From Celebrex] Allergy Unknown Unknown Verified 10/25/18 15:19 latex Allergy Unknown Unknown Verified 10/25/18 15:19 rofecoxib Allergy Unknown Unknown Verified 10/25/18 15:19 Consultations 10/25/18 16:32 ED Decision to Admit Stat 10/25/18 17:45 Consult Case Management - Discharge Planning Routine Consult Urology Routine Ordered Studies 10/26/18 08:00 US renal/blad retro comp Routine Hospital Course (1) KELSEY (acute kidney injury): (2) CKD (chronic kidney disease), stage III: Pt is 88 y/o M with PMH h/o subdural hematoma, HTN, dyslipidemia, pulmonary hypertension, BPH, h/o urinary calculi, CKD III, chronic anemia, GERD, depression, dementia, hypothyroidism, AAA presented from outpatient radiology department today for abnormal renal functions. In ER pt afebrile, P: 75, R: 16, BP: 129/71, 93-95% on RA. WBC: 13.6, H/H: 13/39 (Hgb: 12.9 in 01/2018), Plt: 110, BUN: 95, Cr: 4.7, GFR: 10 (Cr: 1.1 in 01/2018) UA: 1+ leuk esterase, 5-10 WBC, 10-20 epithelial Probable secondary to obstruction from enlarged prostate -In ER Christine placed with 1500ml urine output -In ER given 1L NSS -Urine culture -Rocephin x 1 dose now, pending urine culture -Gentle IVF -Avoid nephrotoxic agents when possible -Monitor renal functions -Urology consult -If no improvement consult nephrology -Cr improving (3) Hydronephrosis: (4) Urinary retention: Pt unable to give history, [facility] staff report no noted fever/chills and state pt with chronic intermittent urinary frequency, urinary incontinence Pt follows with Dr Grayson CT ABD/PELVIS: 1. Bilateral hydroureteronephrosis. 2. Several nonobstructing renal cortical calcifications bilaterally with several simple bilateral renal peripelvic cysts. 3. Bladder distention potentially related to a component of bladder outlet obstruction. 4. This potentially is the etiology for the bilateral hydroureteronephrosis. 5 prostatic enlargement. -In ER Christine placed with 1500ml urine output -Continue flomax -Urology consult (5) Elevated troponin: Troponin: 0.08. Nonspecific ST changes. No reported CP Probable secondary from CKD -Trend troponin -Repeat EKG in am -If develops CP or up trending troponin consider echo (6) Hypokalemia: K: 3.1 -replace and monitor -hold home supplement and repeat electrolytes and renal functions in am (7) QT prolongation: Prolonged QTc on EKG -Repeat EKG in am -Hold Haldol (8) Chronic anemia: H/H: 13/39. Baseline Hgb: 12.9 -Monitor H&H (9) HTN (hypertension): BP on lower side -Hold lisinopril secondary to KELSEY -Monitor BP (10) Dyslipidemia: -Continue statin (11) Dementia: -Hold Haldol secondary to prolonged QTC -Continue trazodone with close monitoring of QTc -Continue Aricept -Monitor for delirium (12) Hypothyroidism: TSH: 4.5 -Not on home meds DVT Prophylaxis -Heparin SQ DNR/DNI as per POL and discussion with pt's guardian - [facility] Follows with Dr Yang at [facility] for routine care ROS-No Headache, No Visual Changes, No Nausea, No Vomiting, No Fever, No Chills, No Neck Pain or Stiffness, No Chest Pain, No Palpitations, No SOB, No PERRY, No Cough, No Sputum, No Wheezing, No Abdominal Pain, No Diarrhea, No Hematemesis, No Hemoptysis, No Unexpected Weight Loss, No Flank pain, No Melena, No Hematochezia, No Frequency, No Urgency, No Burning, No Hematuria, No Rashes, No Diaphoresis. Appetite is Normal Physical Exam Gen-AAO x 2, NAD, Afebrile, demented Head-NCAT, EOMI, PERRLA, Anicteric Sclera, No Posterior Pharyngeal Erythema Neck-Supple, No JVD, No Thyromegaly, No Masses, No LAD, No Bruits Lungs-Clear to Auscultation Bilaterally, No Rales, No Rhonchi, No Wheezing, No Crepitus Chest-No S4, +S1, +S2, No S3, No Murmurs, No Rubs, No Gallops, No Ectopy Abdomen-Soft, Bowel Sounds Present, Non Tender, Non Distended, No Hepatomegaly, No Splenomegaly, No Palpable Masses, No Rebound, No Rigidity, No Guarding Musculoskeletal-Full Range of Motion Bilaterally, No CVAT Extremities-No Cyanosis, No Clubbing, No Edema Nuero-Cranial Nerves II-XII grossly intact, Motor WNL, DTRs WNL, Strength WNL, N on Focal Psych-Normal Mood Total Time Total Time Spent Total Time Spent (In Minutes): 45 mins Discharge Plan Discharge Items Patient Disposition: Transfer Senior Living Fac Reason For Visit: KELSEY Discharge Diagnosis: (1) KELSEY (acute kidney injury): (2) CKD (chronic kidney disease), stage III: (3) Hydronephrosis: (4) Urinary retention: (5) Elevated troponin: (6) Hypokalemia: (7) QT prolongation: (8) Chronic anemia: (9) HTN (hypertension): (10) Dyslipidemia: (11) Dementia: (12) Hypothyroidism Activity: Resume your previous activity Lifting: Gradually increase as tolerated Bathing: No limitations Exercise/Sports: Gradually increase as tolerated Weightbearing: Full weightbearing Non-emergency contact: Primary Care Provider and Urologist Call non-emergency contact if: you have any medication questions Follow-up/Referrals: Nohemi Cavanaugh [Primary Care Provider] - 10/27/18 3:00 pm Sukhjinder Grayson II, DO [Physician] - (1 week to remove christine and for a cystoscopy) Diet: Regular Addtl Attending Provider Instructions: Follow up c in the Office for cystoscopy and to remove christine Pending Studies at Discharge: No Stand-Alone Forms: My [facility] Skilled Items Patient informed of condition?: Yes DNR: Yes Discharge Level of Care: Skilled Communicable Disease: No Discharge Prognosis: Improving Lines: None Urinary Catheter: Yes Medications and DC Order Prescriptions: New ascorbic acid (vitamin C) 1,000 mg tablet 1 gm PO BID Qty: 90 RF: 0 Continued donepezil [Aricept] 5 mg tablet 5 mg PO HS RF: 0 atorvastatin 20 mg tablet 20 mg PO QPM RF: 0 haloperidol 0.5 mg tablet 0.5 mg PO HS RF: 0 lisinopril 5 mg tablet 5 mg PO DAILY RF: 0 Flonase Sensimist 27.5 mcg/actuation spray,suspension See Rx Instructions .ROUTE .COMPLEX PRN (Reason: Seasonal Allergies/Congestion) RF: 0 magnesium hydroxide [Milk of Magnesia] 400 mg/5 mL suspension 30 ml PO DIRECTED PRN (Reason: Constipation) RF: 0 trazodone 50 mg Tablet 25 mg PO DAILY RF: 0 cetirizine [Zyrtec] 10 mg Tablet 10 mg PO DAILY RF: 0 tamsulosin [Flomax] 0.4 mg Capsule 0.4 mg PO QPM RF: 0 acetaminophen 325 mg Tablet 650 mg PO Q6H MDD 3 GM APAP/24 HOURS PRN (Reason: Fever Or Pain) RF: 0 acetaminophen 650 mg Suppository 650 mg TX Q6H PRN (Reason: Fever Or Pain) RF: 0 S-Aeew-Kmhkmod 250 mg Tablet 1 tab PO TID RF: 0 TwoCal HN 0.08-2 gram-kcal/mL Liquid 1 ea PO QID RF: 0 bisacodyl [Dulcolax (bisacodyl)] 10 mg Suppository 10 mg TX DIRECTED PRN (Reason: Constipation) RF: 0 Fleet Enema 19-7 gram/118 mL Enema 118 ml TX DIRECTED PRN (Reason: Constipation) RF: 0 Discharge Orders: Discharge Order (Routine); Ordered 10/27/18 Ordered By: Rajat Bey Admission Data Admit Date/Time: 10/25/18 16:48 Attending Provider: Rajat Bey Admit Provider: Juanjo Bruce Primary Care Provider: Nohemi Cavanaugh Other Providers: Sukhjinder Grayson II ; Juanjo Bruce
[2018-10-27] MEDS: CETIRIZINE HCL 10 MG TABLET PO SCH (08:46)
== END 2018-10-27 11:30 | DRG 726 ==
LOC: ED 14:20 → SUATTDRO 16:48 → 2N 16:48